=== PATIENT | female | born 1970 | race Asian ===

== ENCOUNTER 2016-11-30 23:54 | Emergency (ER) | payer OTHER ==
[~2016-11-30] VITALS: Ht 160 cm; Wt 91.6 kg
[2016-12-01] MEDS ORDERED: IPRATROPIUM BROM 0.5 MG/2.5ML INH SOL NEB ONE (00:30)
[2016-12-01] MEDS ORDERED: ALBUTEROL SULF 2.5 MG/0.5ML(0.5%) NEB SOLN NEB ONE (00:30)
[2016-12-01] MEDS ORDERED: IPRATROPIUM BROM 0.5 MG/2.5ML INH SOL ONE (00:47)
[2016-12-01] MEDS ORDERED: ALBUTEROL SULF 2.5 MG/0.5ML(0.5%) NEB SOLN ONE (00:47)
[2016-12-01] MEDS ORDERED: methylPREDNISolone SOD SUCC 125 MG/2 ML VL ONE (01:12)
[2016-12-01] MEDS ORDERED: methylPREDNISolone SOD SUCC 125 MG/2 ML VL IM ONE (01:15)
[2016-12-01 01:49] VITALS: BP 122/80
== END 2016-12-01 01:52 | disposition home or self-care (01) ==
LOC: ER 23:58
DX: J40 Bronchitis, not specified as acute or chronic (principal)
CPT/HCPCS: 71020; 94640; 96372; 99284; J2930

== ENCOUNTER 2017-09-21 21:54 | Emergency (ER) | payer OTHER ==
[~2017-09-21] VITALS: Ht 157.5 cm; Wt 95.3 kg
[2017-09-21 22:04] VITALS: BP 158/86
== END 2017-09-22 00:19 | disposition home or self-care (01) ==
LOC: ER 21:54
DX: M54.9 Dorsalgia, unspecified (principal); Z88.1 Allergy status to other antibiotic agents; Z88.2 Allergy status to sulfonamides; V49.49XA Driver injured in collision with other motor vehicles in traffic accident, initial encounter; Y93.89 Activity, other specified; Y99.8 Other external cause status; Y92.410 Unspecified street and highway as the place of occurrence of the external cause
CPT/HCPCS: 72070; 72100; 72125

== ENCOUNTER → 2020-09-08 | Outpatient (CLI) | payer OTHER | END | disposition home or self-care (01) | LOC: LAB 15:21 | PROVIDERS: ATTEND Physician Assistant | DX: U07.1 COVID-19 (principal) | CPT/HCPCS: C9803; U0003 ==

== ENCOUNTER → 2024-12-11 | Outpatient (CLI) | payer BC ==
[2024-12-11 11:03] LABS: Basophils # (auto) 0 10 ^3/uL (0-0.2); Basophils % (auto) 0.8 % (0.0-2.0); Eosinophils # (auto) 0.2 10 ^3/uL (0-0.8); Eosinophils % (auto) 3.4 % (0.0-7.0); Hematocrit 45.8 % (36.0-46.0); Hemoglobin 15.5 g/dL (12.2-16.2); Lymphocytes # (auto) 1.9 10 ^3/uL (0.4-5.4); Lymphocytes % (auto) 35.5 % (10.0-50.0); Mean Corpuscular Hemoglobin 32.8 pg (28.0-32.0); Mean Corpuscular Hgb Conc. 33.9 g/dL (32.0-36.0); Mean Corpuscular Volume 96.7 fL (80.0-100.0); Monocytes # (auto) 0.4 10 ^3/uL (0-1.3); Monocytes % (auto) 7.9 % (0.0-12.0); Neutrophils # (auto) 2.8 10 ^3/uL (1.6-8.6); Neutrophils % (auto) 52.4 % (37.0-80.0); Nucleated Red Blood Cells % 0.1 %; Platelet Count (auto) 358 10^3/uL (140-450); Red Blood Cells 4.74 10^6/uL (4.0-5.20); Red Cell Distribution Width 13.4 % (11.8-14.3); White Blood Cell 5.4 10^3/uL (4.4-10.8)
[2024-12-11 11:18] LABS: Alanine Aminotransferase 31 U/L (7-40); Albumin 4.6 g/dL (3.2-4.8); Alkaline Phosphatase 76 U/L (46-116); Anion Gap 7 (5-15); Aspartate Aminotransferase 18 U/L (13-40); Bilirubin, Total 0.8 mg/dL (0.2-1.0); Blood Urea Nitrogen 13 mg/dL (9-23); Calcium 9.5 mg/dL (8.7-10.4); Carbon Dioxide 26 mmol/L (20-31); Chloride 104 mmol/L (98-107); Glucose 89 mg/dL (74-106); HDL Cholesterol 59 mg/dL (40-59); Sodium 137 mmol/L (136-145); Total Protein 7.5 g/dL (5.7-8.2); Triglycerides 128 mg/dL (< 150)
[2024-12-11 11:27] LABS: % Iron Saturation 38.5 % (15-50)
[2024-12-11 11:32] LABS: Cholesterol 207 mg/dL (< 200); LDL Cholesterol 146 mg/dL (< 100)
[2024-12-11 11:35] LABS: T3 Total 1.07 ng/mL (0.60-1.81)
[2024-12-11 11:36] LABS: Ferritin 130.9 ng/mL (10-291); Folate (Folic Acid) 19.36 ng/mL (>5.38)
== END | disposition home or self-care (01) ==
LOC: LAB 10:32
PROVIDERS: ATTEND Internal Medicine
DX: I10 Essential (primary) hypertension (principal); R53.83 Other fatigue; E66.01 Morbid (severe) obesity due to excess calories
CPT/HCPCS: 36415; 80053; 80061; 82306; 82607; 82728; 82746; 83036; 83540; 83550; 84436; 84443; 84480; 85025

== ENCOUNTER 2025-09-01 01:59 | Emergency (ER) | payer BC, OTHER ==
[~2025-09-01] VITALS: Ht 157.5 cm; Wt 107.1 kg
--- NOTE | 2025-09-01 02:16 | ED.PDOC ---
History of Present Illness HPI Comments 54-year-old female presents with chief complaint of bilateral knee pain. No endorsed any recent trauma or injury. Denies any pertinent history or further acute symptoms. Chief Complaint: Lower Extremity Reviewed Notes: Nurses Notes, Allergies Allergies: Coded Allergies: Ciprofloxacin (Verified Allergy, Unknown, 12/01/16) Sulfa Antibiotics (Verified Allergy, Unknown, 12/01/16) Information Source: Patient Mode of Arrival: Ambulatory Severity: Moderate Duration: Since onset Prehospital treatment: None Past Medical History PAST MEDICAL HISTORY: Denies Surgical History: Denies all surgeries RIVER GUIDE History: No Pertinent RIVER GUIDE History Social History Smoker: Non-Smoker Alcohol: Denies ETOH Use Drugs: Denies Drug Use Lives In: Home All Other Systems: Reviewed and Negative (Comprehensive review of systems are negative unless otherwise stated in HPI) Physical Exam General Appearance: No Apparent Distress, Normal HEENT: Normal ENT Inspection, Pharynx Normal, TMs Normal Neck: Full Range of Motion, Non-Tender, Normal, Normal Inspection Respiratory: Chest Non-Tender, Lungs Clear, No Accessory Muscle Use, No Respiratory Distress, Normal Breath Sounds Cardiovascular: No Edema, No JVD, No Murmur, No Gallop, Normal Peripheral Pulses, Regular Rate/Rhythm Breast Exam: Deferred Gastrointestinal: No Organomegaly, Non Tender, No Pulsatile Mass, Normal Bowel Sounds, Soft Genitalia: Deferred Pelvic: Deferred Rectal: Deferred Extremities: No calf tenderness, Normal capillary refill, Normal inspection, Normal range of motion, Non-tender, No pedal edema Musculoskeletal : Apperance: Normal 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 Was a procedure done?: No Differential Dx Considerations may include: Fractures, dislocation, sprain, strain, DJD, chronic pain, arthritis, among others X-Ray, Labs, Meds, VS Vital Signs Date Time Temp Pulse Resp B/P (MAP) Pulse Ox O2 Delivery O2 Flow Rate FiO2 09/01/25 02:10 97.8 60 14 139/79 97 97.8 Reevaluation 1ST: Unchanged Patient Education/Counseling: Diagnosis, Treatment, Need For Follow Up Family Education/Counseling: No Family Present SEPSIS Sepsis Screen Vital Signs Date Time Temp Pulse Resp B/P (MAP) Pulse Ox O2 Delivery O2 Flow Rate FiO2 09/01/25 02:10 97.8 60 14 139/79 97 97.8 Departure 1 Departure Disposition: 01 HOME / SELF CARE / HOMELESS Condition: Stable Discharged With: Self Critical Care Note Critical Care Time?: No Stability Stability form required: No Heart Score Heart Score: Heart Score Response (Comments) Value History N/A 0 EKG N/A 0 Age N/A 0 Risk Factors N/A 0 Troponin N/A 0 Total 0 I personally scribed for MENDY ZHU MD ([email or web address]) on 09/01/25 at 02:16. Electronically submitted by Ortiz Toscano ([email or web address]). I personally scribed for MENDY ZHU MD ([email or web address]) on 09/01/25 at 02:17. Electronically submitted by Ortiz Toscano ([email or web address]). MENDY ZHU MD Sep 01, 2025 02:16
--- NOTE | 2025-09-01 02:19 | ED.PDOC ---
History of Present Illness HPI Comments 54-year-old female presents with chief complaint of bilateral knee pain, today. Patient endorses on history of chronic bilateral knee pain. 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 No endorsed any recent trauma or injury, directly, to knee. Left knee hurts more than right. Denies any additional pertinent history or further acute symptoms. 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 [employer]ATE RET[employer] MERCH[employer] History Social History Smoker: Non-Smoker Alcohol: Denies ETOH Use Drugs: Denies Drug Use Lives In: Home All Other Systems: Reviewed and Negative (Comprehensive review of systems are negative unless otherwise stated in HPI) Physical Exam General Appearance: No Apparent Distress, Obese HEENT: Pharynx Normal Neck: Full Range of Motion, Lymphadenopathy (L), Non-Tender Respiratory: Lungs Clear, No Respiratory Distress, Normal Breath Sounds Cardiovascular: No Murmur, Normal Peripheral Pulses, Regular Rate/Rhythm Breast Exam: Deferred Gastrointestinal: Non Tender, Soft Genitalia: Deferred Pelvic: Deferred Rectal: Deferred Extremities: No calf tenderness, Normal capillary refill, No pedal edema Musculoskeletal : Location: Bilateral (TENDERNESS OVER LATERAL ASPECT, NEGATIVE DELROY, AND NEGATIVE DRAW EXAM. FULL RANGE OF MOTION WITH MILD DISCOMFORT. STRENGTH AND SENSORY INTACT POSITIVE PEDAL PULSE) Extremity Location: Knee Apperance: Normal Neurologic: Alert, No Motor Deficits, Normal Affect, Normal Mood, No Sensory Deficits Cerebellar Function: Normal Reflexes: NOT DONE Skin: Dry, Normal Color, Warm Lymphatic: No Adenopathy Was a procedure done? Was a procedure done?: No Differential Dx Considerations may include: Fractures, dislocation, sprain, strain, DJD, chronic pain, arthritis, among others X-Ray, Labs, Meds, VS Vital Signs Date Time Temp Pulse Resp B/P (MAP) Pulse Ox O2 Delivery O2 Flow Rate FiO2 09/01/25 02:35 98.4 63 16 153/91 (111) 95 98.4 09/01/25 02:10 97.8 60 14 139/79 97 97.8 X-Ray, Labs, Meds, VS Comment LEFT KNEE X-RAY SHOWS MODERATE TO SEVERE OA. ADVISED PATIENT ON RICE. [id number] NSAID. PATIENT STATES HAS A FOLLOW UP APPOINTMENT THIS MONDAY WITH HER PCP REGARDING HER BILATERAL KNEE PAIN. ADVISED ON ER RETURN PRECAUTIONS PATIENT INDICATES UNDERSTANDING AGREES WITH DISCHARGE PLAN OF CARE Images Reviewed?: Images reviewed and evaluated by me Time of 1ST Reevaluation: 03:20 Reevaluation 1ST: Unchanged Time of 2ND Reevaluation: 03:58 Reevaluation 2ND: Improved Patient Education/Counseling: Diagnosis, Treatment, Need For Follow Up Family Education/Counseling: No Family Present SEPSIS Sepsis Screen Date sepsis recognized/suspect: Sep 01, 2025 Time Sepsis recognized/suspect: 212 Recent Procedure: No On Antibiotic Therapy: No Respiratory Rate >20: No Heart Rate >90: No Temp<36 C (96.8 F) or >38.3 C: No SBP <90 or MAP <65 mmHG: No New Acute Mental Status Change: No Is the patient on CPAP, BIPAP,: No Physician Orders L Knee 3v Xray (09/01/25 02:38) Vital Signs Date Time Temp Pulse Resp B/P (MAP) Pulse Ox O2 Delivery O2 Flow Rate FiO2 09/01/25 02:35 98.4 63 16 153/91 (111) 95 98.4 09/01/25 02:10 97.8 60 14 139/79 97 97.8 Departure 1 Departure Time of Disposition: 03:58 Impression: Primary Impression: Strain of knee, bilateral Qualified Codes: S86.911A - Strain of unspecified muscle(s) and tendon(s) at lower leg level, right leg, initial encounter; S86.912A - Strain of unspecified muscle(s) and tendon(s) at lower leg level, left leg, initial encounter Disposition: 01 HOME / SELF CARE / HOMELESS Condition: Stable Discharged With: Self Critical Care Note Critical Care Time?: No Stability Stability form required: No Heart Score Heart Score: Heart Score Response (Comments) Value History N/A 0 EKG N/A 0 Age N/A 0 Risk Factors N/A 0 Troponin N/A 0 Total 0 I personally scribed for ER ([email or web address]) on 09/01/25 at 02:18. Electronically submitted by Ortiz Toscano ([email or web address]). I personally scribed for ER ([email or web address]) on 09/01/25 at 02:41. Electronically submitted by Ortiz Toscano ([email or web address]). 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
[2025-09-01 02:35] VITALS: BP 153/91; PULSE 63; RESP 16; TEMP 98.4; O2SAT 95
--- NOTE | 2025-09-01 03:46 | DVH ---
CLINICAL INDICATION: injury/pain TECHNIQUE: XY L KNEE 3V XRAY Comparison: XY L KNEE 3V XRAY on DOS: 12/13/24, XY R KNEE 3V XRAY on DOS: 12/13/24 FINDINGS/IMPRESSION: : There is no evidence of acute fracture or dislocation. Osteoarthritic degenerative change includes moderate to severe medial and moderate lateral tibiofemoral and patellofemoral compartment narrowing with associated osteophytosis. Soft tissues are unremarkable.
== END 2025-09-01 04:14 | disposition home or self-care (01) ==
LOC: ER 01:59
DX: S86.912A Strain of unspecified muscle(s) and tendon(s) at lower leg level, left leg, initial encounter (principal); S86.911A Strain of unspecified muscle(s) and tendon(s) at lower leg level, right leg, initial encounter; Z88.1 Allergy status to other antibiotic agents; Z88.2 Allergy status to sulfonamides; Z98.890 Other specified postprocedural states; X58.XXXA Exposure to other specified factors, initial encounter; Y93.89 Activity, other specified; Y92.89 Other specified places as the place of occurrence of the external cause; Y99.8 Other external cause status
CPT/HCPCS: 73562